=== PATIENT | male | born 1965 | race Two or more races ===

== ENCOUNTER 2024-08-26 21:06 | Emergency (ER) | payer MEDICAID, SELFPAY ==
[2024-08-26 21:07] VITALS: BMI 34.2
[2024-08-26 21:26] VITALS: BP 155/106; BP 178/104; PULSE 83; RESP 18; TEMP 36.5; O2SAT 96
--- NOTE | 2024-08-26 21:31 | EKG_ITS ---
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
--- NOTE | 2024-08-26 21:38 | EDNOTE_ITS ---
ED Headache RME/HPI General Chief Complaint: General Adult/Misc Complain Stated Complaint: HEADACHE, HIGH BP 197/119, CHEST PRESSURE Time Seen by Provider: 08/26/24 21:24 Arrival date/time: 08/26/24 21:06 Limitations: no limitations RME / HPI RME / HPI Narrative: Dr. Ledbetter's Main ED Evaluation: 58yo male with a history of HTN presents to the ED for a chief complaint of high blood pressure. Patient states he has been off of his blood pressure medication for the last 6 weeks since he ran out. Patient states he went to have his blood pressure checked after he started having pain to the back of his neck and was noted to be 197/105. He reports associated chest pain, nausea, sharp chest pain, and whole body numbness. He currently rates his pain a 4 out of 10 in severity. He denies any vomiting, abdominal pain, BLE swelling, shortness of breath or any other associated symptoms. Denies any tobacco, alcohol or illicit drug use. No known allergies. PMHX: Carpal tunnel syndrome Hypertension Meds: Lisinopril Past surgical; Back surgery Primary care physician: None, I do in [facility] Related Data Previous Rx's ?Medication ?Instructions ?Recorded aspirin 81 mg chewable tablet 81 mg PO QDAY #30 tabs 0 08/27/24 lisinopril 10 mg tablet 10 mg PO QDAY #30 tabs 08/27 Allergies Allergy/AdvReac Type Severity Reaction Status Date / Time No Known Allergies Allergy Verified 08/26/24 21:08 Review of Systems Review of Systems Systems Reviewed: All systems reviewed, normal except as documented ED Exam General Limitations: Present no limitations General appearance: Present alert and in no apparent distress Head Head exam: Present atraumatic Eye Eye exam: Present normal appearance, PERRL and EOMI ENT ENT exam: Present normal exam, normal oropharynx and mucous membranes moist Neck Neck exam: Present normal inspection, full ROM and trachea midline Chest Chest inspection: Present normal inspection and symmetric chest wall rise Respiratory Respiratory exam: Present normal lung sounds bilaterally Cardiovascular Cardiovascular exam: Present regular rate, normal rhythm and normal heart sounds Abdominal Exam Abdominal exam: Present soft and normal bowel sounds Extremities Exam Extremities exam: Present normal inspection and full ROM Back Exam Back exam: Present normal inspection and full ROM Neurological Exam Neurological exam: Present alert, oriented X3 and CN II-XII intact Psychiatric Psychiatric exam: Present normal affect and normal mood Skin Skin exam: Present warm, dry, intact and normal color Course Course Course Narrative: CXR is ordered for determining the etiology of chest pain. Quality Measures none Orders Category Date Time Status EKG (ED ONLY) *Do not use* NOW Care 08/26/24 21:31 Completed EKG (ED ONLY) *Do not use* NOW Care 08/26/24 21:52 Completed EKG (ED ONLY) *Do not use* NOW Care 08/27/24 02:43 Completed IV [Insert IV] NOW Care 08/26/24 22:03 Active CXRP [XR chest 1V portable] Stat Exams 08/26/24 21:37 Completed EKG (ED Only) Stat Exams 08/26/24 21:31 Draft EKG (ED Only) Stat Exams 08/26/24 21:52 Draft EKG (ED Only) Stat Exams 08/27/24 02:43 Ordered EKG (ED Only) Stat Exams 08/27/24 02:43 Ordered B-Type Natriuretic Peptide Stat Lab 08/26/24 21:55 Completed CBC Stat Lab 08/26/24 21:55 Completed Comprehensive Metabolic Panel Stat Lab 08/26/24 21:55 Completed Magnesium Stat Lab 08/26/24 21:55 Completed Partial Thromboplastin Time Stat Lab 08/26/24 21:55 Completed Prothrombin Time with INR Stat Lab 08/26/24 21:55 Completed Troponin I Stat Lab 08/26/24 21:55 Completed Troponin I Stat Lab 08/26/24 23:59 Completed Urinalysis Stat Lab 08/26/24 23:26 Completed Aspirin Chew Med 08/26/24 21:31 Discontinued 324 mg PO X1 ONE Nitroglycerin [Nitro-dur Patch] Med 08/26/24 21:42 Discontinued 0.4 mg TOP X1 ONE Nitroglycerin [Nitrostat 1/150] Med 08/26/24 21:52 Active 0.4 mg SL Q5MIN PRN Vital Signs Vital signs: Vital Signs Temperature 97.7 F 08/26/24 21:26 Pulse Rate 83 08/26/24 21:26 Respiratory Rate 18 08/26/24 21:26 Blood Pressure 155/106 H 08/26/24 21:26 Pulse Oximetry (%) 96 08/26/24 21:26 Oxygen Delivery Method Room Air 08/26/24 21:26 Headache MDM Narrative MDM Narrative:: 58-year-old male with history of hypertension noncompliant with his medications over the last 6 months who is normally get treated in [place] coming in with high pressure that has been present for 1 day. The patient went to [facility] to get his blood pressure checked. He was complaining of dizziness, headache, and a 4 out of 10 chest pain. There is no radiation. It is sharp in nature and does not go into his neck or back. The patient is seen in RME 1 and moved to bed 1. EDC: Aspirin is ordered from triage. EKG does not show ST elevation or depressions but does have some ST T wave change in V3. There is no previous EKG. 2200: Patient placed in bed 2 and repeat EKG is performed. LABS: CXR: Scribe Attestation: 08/26/24 - Maki Le am scribing for and in the presence of Dr. Ledbetter. Patient data External records reviewed:: [facility] previous records (Per chart review, patient has no previous ED visits or admissions to this facility.) Clinical information provided by:: patient Social determinants that could affect healthcare access:: none Patient has the following chronic illnesses:: HTN How is presenting disease/condition affected by chronic disease/condition?: caused by Evaluation data The following diagnostics were reviewed and interpreted by me:: lab results, radiology exam(s) and EKG tracing(s) Lab and/or radiology exams considered but not ordered:: none Interpretation Summary: CBC is normal, PT and INR are normal, PTT is normal, CMP is normal, BNP is normal, Initial and Repeat Troponins are normal, UA is unremarkable, according to my interpretation. EKG done at 2138, NSR, rate of 69, 1st degree AV block, nonspecific ST-T wave change in V3, no ST elevations or depressions, according to my interpretation. Repeat EKG done at 2158, NSR, rate of 64, 1st degree AV block, nonspecific ST-T wave change in V3, no ST elevations or depressions, no STEMI, no acute ischemia, according to my interpretation. Repeat EKG done at 0247, sinus bradycardia, rate of 55, 1st degree AV block, nonspecific ST-T wave change in V3, no ST elevations or depressions, no STEMI, no acute ischemia, according to my interpretation. [facility] Report Signed Patient: MAEVE CASANOVA Record#: [id number] Birthdate: 1965 Age/Sex: 58 / M Location: [facility] Attending Dr: Ordering Physician: Sis Patten MD Date of Service: 08/26/24 Procedure(s): XR chest 1V portable Accession Number(s): [id number] cc: Gui Lu MD; Sis Patten MD; Temporary Provider,ED ~ Examination: AP chest single view Technique: AP portable upright chest single view Exam date and time: August 26, 2024 10:20 PM Indications: Chest pain shortness of breath today. Findings: Normal heart size Lungs are clear. The osseous structures are intact Impression: No active disease Dictated By: Gui Lu MD Signed By: <Electronically signed by Gui Lu MD in OV> 08/26/24 6748 Medications / Prescriptions Medications or Prescriptions considered but not ordered:: none Medication administrations:: Medication Administration History Nitroglycerin (Nitroglycerin 0.4 Mg Subl Btl #25) 0.4 mg SL Q5MIN PRN PRN Reason: CHEST PAIN Last Admin: 08/26/24 22:06 Dose: 1 tab Documented By: DEMETRIO Discontinued Medications Aspirin (Aspirin 81 Mg Chew) 324 mg PO X1 ONE Stop: 08/26/24 21:32 Last Admin: 08/26/24 21:59 Dose: 324 mg Documented By: DEMETRIO Nitroglycerin (Nitroglycerin 0.4 Mg/Hr Patch.Td24) 0.4 mg TOP X1 ONE Stop: 08/26/24 21:43 Last Admin: 08/26/24 22:18 Dose: Not Given Documented By: DEMETRIO Non-Admin Reason: Cancelled by Provider see above Consultations Consultation(s) initiated? (list below): No Diagnosis Differential diagnosis headache: other (hypertensive urgency, hypertensive emergency, angina, NSTEMI, STEMI, dehydration, PE, dissection) Most likely diagnosis given after review of the tests above:: see clinical impression below Admission Indicated Admission indicated?: not indicated Admission Request Was there a request for admission?: No Disposition Plan Disposition Plan: Discharge Discharge Attestation Discharge Attestation: The patient and all family members were given an opportunity to ask questions and understood the discharge instructions. Discharge instructions specifically effects, indications for sooner follow up or return to the emergency department, and the expected course of current diagnosis. Patient condition: Stable Discharge Plan Plan Patient Disposition: HOME (Self Care) Patient condition on transfer: Stable Prescriptions/Referrals Prescriptions/Med Rec: New lisinopril 10 mg tablet 10 mg PO QDAY Qty: 30 1RF aspirin 81 mg tablet,chewable 81 mg PO QDAY Qty: 30 0RF Referrals: [facility] [Outside] - In 1 week Temporary Provider,ED [Physician] - In 1 week Problem List Clinical Impression: Hypertension, Noncompliance with medications Patient/Caregiver Discharge Instructions Education Materials: Controlling High Blood Pressure, Blood Pressure Check Steps, ED High Blood Pressure ... Additional Instructions: Follow-up with your primary care provider to get a referral for cardiology. Take a baby aspirin daily. Check your blood pressure daily. Return to the ED for any worsening symptoms or as needed. Print Language: Belarusian Stand Alone Forms: Barbara Award Info., Patient Portal Info Letter
--- NOTE | 2024-08-26 21:52 | EKG_ITS ---
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
[2024-08-26] MEDS: ASPIRIN 81 MG CHEW 324 MG PO (21:59)
--- NOTE | 2024-08-26 22:00 | PC.NURSE ---
PT ALERT AND IN NO ACUTE DISTRESS, PT C/O 11/21 CHEST PAIN/PRESSURE THAT STARTED THIS AM WITH NO IMPROVEMENT. PT WAITING FOR RE-EVAL FROM ER MD, AT BEDSIDE, WILL CONTINUE WITH PLAN OF CARE
--- NOTE | 2024-08-26 22:00 | PC.NURSE ---
PT ALERT AND IN NO ACUTE DISTRESS, PT C/O 11/21 CHEST PAIN/DISCOMFORT SINCE THIS AM WITH NO IMPROVEMENT. AT BEDSIDE, WAITING FOR RE-EVAL FR9
[2024-08-26 22:02] VITALS: BP 170/108; PULSE 68; RESP 12; O2SAT 96
[2024-08-26 22:06] VITALS: BP 170/108; PULSE 65
[2024-08-26 22:06] LABS: Basophils % (Auto) 0 % (0-2.5); Eosinophils # (Auto) 0.3 Thou/mm3 (0.0-0.5); Eosinophils % (Auto) 4 % (0-10); Hematocrit 47.6 % (41.0-53.0); Hemoglobin 16.1 g/dL (13.5-16.0); Immature Granulocytes % (Auto) 0 % (0-0); Immature Granulocytes Auto 0.02 Thou/mm3 (0.00-0.00); Lymphocytes # (Auto) 2.2 Thou/mm3 (1.0-4.8); Lymphocytes % (Auto) 29 % (10-50); Mean Corpuscular HGB Conc 33.8 g/dl (31.0-37.0); Mean Corpuscular Hemoglobin 29.2 pg (25.0-35.0); Mean Corpuscular Volume 86 fL (80-100); Monocytes # (Auto) 0.9 Thou/mm3 (0.0-0.8); Monocytes % (Auto) 12 % (0-12); Neutrophils # (Auto) 4.2 Thou/mm3 (1.8-7.7); Neutrophils % (Auto) 55 % (37-80); Nucleated Red Blood Cell % 0 /100 WBC (0); Platelet Count 239 Thou/mm3 (140-440); RDW Standard Deviation 42.6 fL (35.1-43.9); Red Blood Count 5.51 Miln/mm3 (4.50-5.90); White Blood Count 7.7 Thou/mm3 (3.8-10.6)
[2024-08-26] MEDS: NITROGLYCERIN 0.4 MG SUBL BTL #25 SL (22:06)
[2024-08-26 22:11] VITALS: BP 105/90; PULSE 70
[2024-08-26 22:26] LABS: INR 0.9 (0.9-1.3); Partial Thromboplastin Time 26.4 Seconds (22.0-36.0); Prothrombin Time 10.4 Seconds (9.0-12.2)
[2024-08-26 22:28] LABS: B-Type Natriuretic Peptide 20 pg/mL (0-100)
[2024-08-26 22:31] LABS: Alanine Aminotransferase 24 U/L (10-49); Albumin, Serum 4.4 gm/dL (3.5-5.0); Anion Gap 9 (7-16); Aspartate Amino Transferase 22 U/L (0-34); BUN/Creatinine Ratio 15 Ratio (12-20); Bilirubin,Total 0.4 mg/dL (0.3-1.2); Blood Urea Nitrogen 18 mg/dL (9-23); Calcium 9.2 mg/dL (8.3-10.6); Carbon Dioxide 24.5 mMol/L (20.0-31.0); Chloride 108 mMol/L (98-107); Creatinine (Component) 1.2 mg/dL (0.6-1.3); Estimated Creatinine Clearance 77.7 mL/min (>60); Glucose 97 mg/dL (74-106); Magnesium 2.1 mg/dL (1.6-2.6); Osmolality,Calculated 283 (275-295); Sodium 141 mMol/L (136-145); Total Protein 7.2 gm/dL (5.7-8.2); Troponin I < 0.020 ng/mL (0.0-0.045); eGFR > 60 See Note
[2024-08-26 22:32] LABS: Albumin/Globulin Ratio 1.6 (1.2-2.2); Alkaline Phosphatase 91 U/L (46-116); Calcium (Corrected) 9.2 mg/dL (8.5-10.1); Globulin 2.8 gm/dL (2.3-3.5)
[2024-08-26 23:35] LABS: Collection Type, Urine Clean Catch
[2024-08-26 23:42] LABS: Bilirubin,Urine Negative (Negative); Blood,Urine Negative (Negative); Clarity,Urine Clear (Clear/Hazy); Color,Urine Lt-Yellow (Lt Yel-Yel); Glucose, Urine Negative (Negative); Ketones,Urine Negative (Negative); Leukocyte Esterase,Urine Negative (Negative); Nitrite,Urine Negative (Negative); Protein,Urine Negative (Neg - Trace); RBC,Urine 4 /hpf (0-3); Specific Gravity,Urine 1.031 (1.001-1.035); Squamous Epithelial Cell,Urine 1 /hpf (0-5); Urobilinogen,Urine Negative mg/dL (0.0-1.0); WBC,Urine 3 /hpf (0-5)
[2024-08-27 00:18] VITALS: BP 142/98; PULSE 61; RESP 18; TEMP 36.4; O2SAT 96
[2024-08-27 00:39] LABS: Troponin I < 0.020 ng/mL (0.0-0.045)
[2024-08-27 01:56] VITALS: BP 143/90; PULSE 64; RESP 15; O2SAT 95
[2024-08-27 03:40] VITALS: BP 176/110; PULSE 61; RESP 14; O2SAT 98
== END 2024-08-27 11:58 | disposition home or self-care (01) ==
LOC: SERX 08-27 04:11
PROVIDERS: Physician Assistant; Emergency Provider Emergency Medicine
DX: I10 Essential (primary) hypertension (principal); Z91.148 Patient's other noncompliance with medication regimen for other reason; R07.9 Chest pain, unspecified
CPT/HCPCS: 36415; 71045; 80053; 81001; 83615; 83735; 83880; 84484; 85025; 85610; 85730; 93005; 99284; A9270